=== PATIENT | female | born 1990 | race Caucasian/White ===

== ENCOUNTER 2023-07-01 09:27 | Emergency (ER) | payer BC, SELFPAY ==
[2023-07-01 09:39] VITALS: BP 113/76; PULSE 71; RESP 16; TEMP 36.8; O2SAT 100
--- NOTE | 2023-07-01 09:57 | ED.GENADULT ---
HPI - General Adult General Chief complaint: Unspecified Stated complaint: work note Time Seen by Provider: 07/01/23 09:50 Mode of arrival: ambulatory Limitations: no limitations History of Present Illness HPI narrative: 33-year-old female presents concern for migraine headache. Reports she woke up with a migraine headache this morning and had to call into work. She reports she took Tylenol, Zofran, sumatriptan and went back to sleep, she woke up and her migraine was gone. Reports that she needs a work note. Related Data Home Medications Medication Instructions Recorded Confirmed lithium carbonate 450 mg 450 mg PO DAILY 07/01/23 07/01/23 tablet,extended release ondansetron HCl 4 mg tablet 4 mg PO PRN PRN Nausea And Vomiting 07/01/23 07/01/23 Allergies Allergy/AdvReac Type Severity Reaction Status Date / Time No Known Allergies Allergy Verified 07/01/23 09:44 Review of Systems Review of Systems: CONSTITUTIONAL: Denies malaise, chills, sweats, or fever. EYES: Denies visual changes, redness, or discharge. CARDIOVASCULAR: Denies chest pain, palpitations, or edema. RESPIRATORY: Denies cough or dyspnea. GASTROINTESTINAL: Reports nausea NEUROLOGIC: Denies numbness, weakness. Reports history of headache. PSYCHIATRIC: Denies anxiety or depression. All systems reviewed & are unremarkable except as noted in HPI and below PMFSH Comments At time of signature, agree with nursing past medical, surgical, social and family history. There is no relevant family history pertinent to the presenting complaint Exam Narrative: GENERAL: Well-appearing, well-nourished, and in no acute distress. HEAD: Normocephalic, atraumatic. EYES: PERRLA, sclera clear, and EOMI. No nystagmus. ENT: Nares clear, turbinates pink, no rhinorrhea or epistaxis. Mucous membranes moist. TM pearly fontenot with sharp light reflex bilaterally; no tragal tenderness. Oropharynx without erythema or lesions. Tonsils not enlarged and without exudate. NECK: Supple. No lymphadenopathy CHEST: No respiratory distress. Speaks in full sentences. HEART: Regular rate and rhythm. No murmur heard. Normal peripheral pulses. SKIN: Warm, dry, no visible rash. NEURO: Alert and oriented x3. No focal deficits. Cranial nerves II through XII grossly intact PSYCH: Normal mood and affect Course Course Emergency Course: Patient is aware of diagnosis, understands and agrees to treatment plan. Anticipatory guidance given. Patient agrees to follow-up as directed and is aware of reasons to seek care at the emergency department. Portions of this record may have been created with voice recognition software Level of Care: Express Care Visit Vital Signs Vital signs: Vital Signs Temperature 98.3 F 07/01/23 09:39 Pulse Rate 71 07/01/23 09:39 Respiratory Rate 16 07/01/23 09:39 Blood Pressure 113/76 07/01/23 09:39 Pulse Oximetry 100 07/01/23 09:39 Oxygen Delivery Room Air 07/01/23 09:39 Temperature 98.3 F 07/01/23 09:39 Pulse Rate 71 07/01/23 09:39 Respiratory Rate 16 07/01/23 09:39 Blood Pressure 113/76 07/01/23 09:39 Pulse Oximetry 100 07/01/23 09:39 Oxygen Delivery Room Air 07/01/23 09:39 Reviewed. Medical Decision Making MDM Narrative Medical decision making narrative: The patient was evaluated by myself in the emergency department. History is obtained from patient who is an independent historian and physical exam was performed.? Available medical records were reviewed at this time. ? Exam findings and imaging show no acute concerns or changes; patient is non-toxic appearing and is in no distress. Patient is appropriate for outpatient treatment and follow-up. ? I have evaluated and discussed social determinants of health with the patient that could potentially impact subsequent diagnosis and treatment plans. ? Differential diagnosis and treatment plan were discussed with the patient. Patient agrees with discussion and after sh
== END 2023-07-01 10:04 | disposition home or self-care (01) ==
PROVIDERS: Emergency Provider Nurse Practitioner
DX: O99.891 Other specified diseases and conditions complicating pregnancy (principal); Z3A.01 Less than 8 weeks gestation of pregnancy; R51.9 Headache, unspecified; O99.341 Other mental disorders complicating pregnancy, first trimester; F31.9 Bipolar disorder, unspecified
CPT/HCPCS: 99203; G0463

== ENCOUNTER 2023-07-30 10:50 | Emergency (ER) | payer BC, SELFPAY ==
[2023-07-30 11:00] VITALS: BP 112/79; PULSE 78; RESP 12; TEMP 36.9; O2SAT 100
--- NOTE | 2023-07-30 11:14 | ED.EYEPROB ---
HPI - Eye Problem General Chief complaint: Eye Problems Stated complaint: bump on left eye Time Seen by Provider: 07/30/23 11:05 Source: patient Mode of arrival: ambulatory Limitations: no limitations History of Present Illness HPI Narrative: Josi is a 33-year-old female patient presenting to the clinic today with complaints of a bump to her left upper eyelid. She reports the bump is red and painful. She does get styes frequently. States she has tried warm compresses over the last 3 days without relief. Related Data Home Medications Medication Instructions Recorded Confirmed lithium carbonate 450 mg 450 mg PO DAILY 07/01/23 07/30/23 tablet,extended release ondansetron HCl 4 mg tablet 4 mg PO PRN PRN Nausea And Vomiting 07/01/23 07/30/23 hydroxyzine pamoate 50 mg capsule 50 mg PO DAILY 07/30/23 07/30/23 quetiapine 100 mg tablet 100 mg PO DAILY 07/30/23 07/30/23 sumatriptan succinate 100 mg tablet 100 mg PO DAILY 07/30/23 07/30/23 Allergies Allergy/AdvReac Type Severity Reaction Status Date / Time No Known Allergies Allergy Verified 07/30/23 10:56 Review of Systems Review of Systems: Pertinent positives per HPI. Patient denies any fever, chills, rash, headache, visual changes, dizziness, cough, runny nose, sore throat, shortness of breath, chest pain, palpitations, nausea, vomiting, diarrhea, constipation, abdominal pain, or any urinary issues. PMFSH Comments At the time of my signature, I reviewed and agree with the nursing past medical, surgical, social, and family history. There is no relevant family history pertinent to the patient complaint. Exam Narrative: General: Well-developed, well nourished, in no apparent distress Head: Normocephalic, atraumatic Eyes: Pupils equally round and reactive to light bilaterally, EOM intact, sclera and conjunctive clear, no discharge, right lids normal, left upper lid swollen and red and tender to palpation-non fluctuant Ears: TMs intact and clear, ear canals clear, no drainage, grossly hearing normal. Nose: Nares patent, no discharge, no inflammation, no sinus tenderness. Mouth: Oropharynx without lesions or masses, good dentition, MMM. Neck: Supple, trachea midline, no enlargement of anterior or posterior cervical nodes, no thyroid masses or goiter palpable. Cardio: Regular rate and rhythm, s1 and s2 normal, no murmur appreciated. Resp: Clear to auscultation bilaterally anteriorly and posteriorly, no rhonchi, rales, wheezing or rubs Course Course Emergency Course: Portions of this record may have been created with voice recognition software. Level of Care: Express Care Visit Vital Signs Vital signs: Vital Signs Temperature 36.9 C 07/30/23 11:00 Pulse Rate 78 07/30/23 11:00 Respiratory Rate 12 07/30/23 11:00 Blood Pressure 112/79 07/30/23 11:00 Pulse Oximetry 100 07/30/23 11:00 Temperature 36.9 C 07/30/23 11:00 Pulse Rate 78 07/30/23 11:00 Respiratory Rate 12 07/30/23 11:00 Blood Pressure 112/79 07/30/23 11:00 Pulse Oximetry 100 07/30/23 11:00 Vital signs reviewed MDM - Eye Problem MDM Narrative Medical decision making narrative: At the time of visit patient is resting comfortably on the exam table. Patient appears to be nontoxic. Plan: I suspect patient has likely a stye to the upper eyelid. Will place on polymyxin eyedrops and have her continue warm compresses. Supportive measures were discussed with the patient and they voiced understanding discharge instructions and agrees to treatment plan. Return precautions reviewed Differential Diagnosis Differential diagnosis: Likely other (Stye, abscess, blepharitis, chalzion) Discharge Plan Discharge Clinical Impression: External hordeolum Patient Disposition: Home, Self-Care Condition: Stable Instructions: Antibiotic Derek, Elmer (ED) Additional Instructions: Continue to apply warm compresses to the eye to help alleviate pain and kari
== END 2023-07-30 11:24 | disposition home or self-care (01) ==
PROVIDERS: Emergency Provider Nurse Practitioner Family
DX: H00.014 Hordeolum externum left upper eyelid (principal); F31.9 Bipolar disorder, unspecified
CPT/HCPCS: 99213; G0463

== ENCOUNTER 2023-08-28 17:41 | Emergency (ER) | payer BC, SELFPAY ==
[2023-08-28 17:43] VITALS: BP 123/87; PULSE 71; RESP 16; TEMP 36.6; O2SAT 100
--- NOTE | 2023-08-28 18:33 | PC.NURSE ---
When called to take back to exam room, patient reporting she feels better and no longer wants to be seen. Patient ambulatory out of department with steady gait and in no acute distress.
== END 2023-08-28 18:40 | disposition left against medical advice (07) ==
LOC: ANHED 18:36
DX: G43.909 Migraine, unspecified, not intractable, without status migrainosus (principal)
CPT/HCPCS: 99199

== ENCOUNTER 2024-01-11 11:12 | Emergency (ER) | payer BC, SELFPAY ==
[2024-01-11 11:25] VITALS: BP 133/93; PULSE 91; RESP 20; TEMP 36.6; O2SAT 100
[2024-01-11 11:52] LABS: EDCOVIDSCREEN Negative (Negative); EDINFLUASCREEN Positive (Negative); EDINFLUBSCREEN Negative (Negative); EDSTREPNEGPOS1 Negative (Negative)
--- NOTE | 2024-01-11 11:58 | ED.URI ---
HPI - URI/Sore Throat General Chief Complaint: Upper Respiratory Infection Stated Complaint: /Ears/Sore Throat Time Seen by Provider: 01/11/24 11:48 Source: patient and RN notes reviewed Mode of arrival: ambulatory Limitations: no limitations History of Present Illness HPI Narrative: Patient presents today complaining of headache, productive cough, left ear pain, sore throat, nasal congestion. Symptoms began yesterday. Denies fever or shortness of breath. She is currently 34 weeks . She has been taking Tylenol with some mild relief. She has not received a flu vaccine this season. Related Data Home Medications Medication Instructions Recorded Confirmed ondansetron HCl 4 mg tablet 4 mg PO PRN PRN Nausea And Vomiting 07/01/23 01/11/24 quetiapine 100 mg tablet 100 mg PO DAILY 07/30/23 01/11/24 sumatriptan succinate 100 mg tablet 100 mg PO DAILY 07/30/23 01/11/24 Allergies Allergy/AdvReac Type Severity Reaction Status Date / Time No Known Allergies Allergy Verified 01/11/24 11:52 Review of Systems Review of Systems: CONSTITUTIONAL: Denies body aches, fever, chills, or sweats. EYES: Denies visual changes, redness, or discharge. ENT: Denies rhinorrhea. + congestion, sore throat, left ear pain CARDIOVASCULAR: Denies chest pain, palpitations, or edema. RESPIRATORY: Denies dyspnea.+ cough GASTROINTESTINAL: Denies abdominal pain, nausea, vomiting, or diarrhea. GENITOURINARY: Denies dysuria or hematuria. SKIN: Denies rash, itching, or wounds. MUSCULOSKELETAL: Denies back pain, joint pain, or myalgia. NEUROLOGIC: Denies numbness, tingling, or weakness.+ headache PSYCH: Denies depression or anxiety. PMFSH Comments At time of signature, I have reviewed and agree with nursing past medical, surgical, social and family history unless otherwise noted. Please see nursing chart for further information. There is no relevant family history pertinent to the presenting complaint Exam Narrative: GENERAL: Mildly ill-appearing, well-nourished, and in no acute distress. HEAD: Normocephalic, atraumatic. EYES: EOMI. No redness or drainage. Conjunctivae normal. ENT: Mucous membranes pink and moist. Nares congested. No rhinorrhea. TMs normal bilaterally. Throat normal. Uvula midline. NECK: Normal AROM. Supple. No lymphadenopathy. CHEST: No respiratory distress. Clear to auscultation. HEART: Regular rate and rhythm. No murmur appreciated. EXTREMITIES: Normal range of motion. No edema. SKIN: Warm, dry, no rash. Capillary refill normal. Normal skin turgor. NEURO: No focal deficits. Alert and oriented x3. Gait steady. PSYCH: Normal affect. No signs of depression or anxiety. Course Course Level of Care: Express Care Visit Vital Signs Vital signs: Vital Signs Temperature 98 F 01/11/24 11:25 Pulse Rate 91 01/11/24 11:25 Respiratory Rate 20 01/11/24 11:25 Blood Pressure 133/93 H 01/11/24 11:25 Pulse Oximetry 100 01/11/24 11:25 Oxygen Delivery Room Air 01/11/24 11:25 Temperature 98 F 01/11/24 11:25 Pulse Rate 91 01/11/24 11:25 Respiratory Rate 20 01/11/24 11:25 Blood Pressure 133/93 H 01/11/24 11:25 Pulse Oximetry 100 01/11/24 11:25 Oxygen Delivery Room Air 01/11/24 11:25 Reviewed MDM - URI/Sore Throat MDM Narrative Medical decision making narrative: COVID and strep throat negative. Influenza a positive. Prescription for Tamiflu sent to pharmacy. Anticipatory guidance given. Differential Diagnosis Differential diagnosis: Likely upper respiratory infection, otitis media, viral infection, influenza, pharyngitis and other (COVID, strep throat) Lab Data Attestation: I reviewed the patient's lab results. Labs: Lab Results 01/11/24 Range/Units 11:50 POC Influenza A Ag Positive (Negative) POC Influenza B Ag Negative (Negative) POC SARS CoV-2 Ag Negative (Negative) POC Grp A Strep Screen Negative (Negative) Critical Care Time Critical Care Time Critical Care Time: No Discharge Plan Discharge Clinical Impression: Influenza A Patient Disposition: Home, Self-Care Condition: Stable Instructions: Influenza (DC) Additional Instructions: You have tested positive for influenza a today. Your COVID and strep throat tests are negative. Rest and stay hydrated. Take the Tamiflu as prescribed. Follow-up with your PCP or OBGYN if symptoms are not improving. Go to the ER if symptoms worsen. Your blood pressure was elevated above 120/80 today at Urgent Care. This puts you above the threshold for follow up. Please schedule a followup visit with your personal physician as soon as possible, for further evaluation and treatment. Even blood pressure exceeding 120/80 may indicate pre-hypertension. Prescriptions: New oseltamivir [Tamiflu] 75 mg capsule 75 mg PO Q12H 5 Days Qty: 10 0RF No Action ondansetron HCl 4 mg tablet 4 mg PO PRN PRN (Reason: Nausea And Vomiting) sumatriptan succinate 100 mg tablet 100 mg PO DAILY quetiapine 100 mg tablet 100 mg PO DAILY Follow-up/Referrals: Ayesha,LISS Figueroa [Primary Care Provider] - Stand Alone Forms: Work/School Release IP Time of Disposition: 12:01
== END 2024-01-11 12:10 | disposition home or self-care (01) ==
PROVIDERS: Emergency Provider Nurse Practitioner; PCP Physician Assistant
DX: O99.513 Diseases of the respiratory system complicating pregnancy, third trimester (principal); Z3A.34 34 weeks gestation of pregnancy; J10.1 Influenza due to other identified influenza virus with other respiratory manifestations; Z20.822 Contact with and (suspected) exposure to COVID-19
CPT/HCPCS: 87081; 87426; 87804; 87880; 99213; G0463

== ENCOUNTER 2024-06-13 11:21 | Emergency (ER) | payer BC, SELFPAY ==
[2024-06-13 11:25] VITALS: BP 130/80; PULSE 74; RESP 20; TEMP 36.4; O2SAT 99
--- NOTE | 2024-06-13 11:41 | ED_ITS ---
HPI - Female Genitourinary General Chief complaint: Urogenital-Female Stated complaint: urinary issue Time Seen by Provider: 06/13/24 11:45 Source: patient, RN notes reviewed and old records reviewed Mode of arrival: ambulatory Limitations: no limitations History of Present Illness HPI Narrative: 34 year old female presents to [facility] care with complaints of having suprapubic pain and bladder pain with pressure and pain with urination which started this morning around 0300. Patient reports that she has been drinking plenty of fluids denies any urgency or frequency, reports no flank pain or any noted blood in urine, states that she is having some spotting at this time does have IUD. Patient reports no concern for STD exposure. Patient reports no fevers, chills, or sweats MD elicited complaint: UTI Onset (ago): hour(s) (3 am today) Location of symptoms: suprapubic and urethra Severity: mild Quality of pain: other (pressure and pain with urination no burning no urgency or frequency) Consistency: intermittent Vaginal discharge: none Vaginal bleeding: other (spotting) Urinary symptoms: Dysuria (suprapubic pressure) Treatment prior to arrival: other (states had migraine this morning took sumatriptan, Zofran and Excedrin) Related Data Home Medications ?Medication ?Instructions ?Recorded ?Confirmed ?Last Taken ?Type ondansetron HCl 4 mg tablet 4 mg PO PRN PRN Nausea And Vomiting 07/01/23 01/11/24 Unknown History quetiapine 100 mg tablet 100 mg PO DAILY 07/30/23 01/11/24 Unknown History bupropion HCl 150 mg tablet,12 hr mg PO 06/13/24 Unknown History sustained-release quetiapine 50 mg tablet mg 06/13/24 Unknown History sertraline 50 mg tablet mg 06/13/24 Unknown History sumatriptan succinate 100 mg tablet mg PO 06/13/24 Unknown History Allergies Allergy/AdvReac Type Severity Reaction Status Date / Time No Known Allergies Allergy Verified 06/13/24 11:23 Review of Systems Review of Systems: CONSTITUTIONAL: Denies fever, chills, or sweats. CARDIOVASCULAR: Denies chest pain, palpitations, or edema. RESPIRATORY: Denies cough or dyspnea. GASTROINTESTINAL:Reports suprapubic abdominal pain, stated nausea with headache this morning,no vomiting, or diarrhea. GENITOURINARY: Reports dysuria,no frequency, urgency. Denies flank pain or hematuria. reports pain with urination SKIN: Denies rash or itching. MUSCULOSKELETAL: Denies back pain or myalgia. Denies CVA tenderness NEUROLOGIC: Reports migraine headache this morning treated with sumatriptan, Excedrin,and Zofran All systems reviewed & are unremarkable except as noted in HPI and below PMFSH Past Medical History Medical History (Updated 06/15/24 @ 09:28 by Yaquelin Ferreira NP) H/O hordeolum Migraine Bipolar disorder ADHD (attention deficit hyperactivity disorder) Anxiety Social History Social History Smoking status: Current every day smoker Tobacco type: cigarettes Alcohol use details: no alcohol use Substance use type: does not use Living arrangements: with family Gender identity (if verbalized by the patient): Female Comments At time of signature, agree with nursing past medical, surgical, social and family history. There is no relevant family history pertinent to the presenting complaint Exam Narrative: GENERAL: Well-appearing, well-nourished, and in no acute distress. HEAD: Normocephalic, atraumatic. NECK: Supple.no lymphadenopathy CHEST: Clear to auscultation. No respiratory distress.SAO2 99% on room air HEART: Regular rate and rhythm. No murmur heard. Normal peripheral pulses. ABDOMEN: Soft, nontender to palpation, reports some suprapubic pressure and pain with urination, nondistended, No McBurney point tenderness,normal active bowel sounds. No CVA tenderness EXTREMITIES: Normal range of motion. No edema. SKIN: Warm, dry, no rash. NEURO: No focal deficits. Alert and oriented x3. Course Course Emergency Course: Patient is aware of diagnosis, understands and agrees to treatment plan.? Anticipatory guidance given.? Patient agrees to follow-up as directed and is aware of reasons to seek care at the emergency department. Portions of this record may have been created with voice recognition software Level of Care: Express Care Visit Vital Signs Vital signs: Vital Signs Temperature 36.4 C L 06/13/24 11:25 Pulse Rate 74 06/13/24 11:25 Respiratory Rate 20 06/13/24 11:25 Blood Pressure 130/80 06/13/24 11:25 Pulse Oximetry 99 06/13/24 11:25 Oxygen Delivery Room Air 06/13/24 11:25 Temperature 36.4 C L 06/13/24 11:25 Pulse Rate 74 06/13/24 11:25 Respiratory Rate 20 06/13/24 11:25 Blood Pressure 130/80 06/13/24 11:25 Pulse Oximetry 99 06/13/24 11:25 Oxygen Delivery Room Air 06/13/24 11:25 MDM - Female Genitourinary MDM Narrative Medical decision making narrative: Exam findings and UA show no acute concerns or changes; patient is non-toxic appearing and is in no distress.? Patient is appropriate for outpatient treatment and follow-up. Differential Diagnosis Differential diagnosis: Likely urinary tract infection, cystitis and other (pain with urination, suprapubic pressure) Medical Records Attestation: I reviewed the patient's medical records. Lab Data Attestation: I reviewed the patient's lab results. Lab results narrative: urine dip: Glucose negative, bilirubin negative ketone negative specific gravity less than or equal to 1.005, blood negative, pH 6.0, protein negative, urobilinogen 0.2, nitrate negative, leukocyte negative Labs: Lab Results 06/13/24 Range/Units 11:42 POC Urine Color Yellow POC Urine Clarity Clear POC Urine pH 6.0 POC Ur Specif [place] 1.000 POC Urine Protein Negative (Negative) POC Ur Glucose (UA) Negative (Negative) POC Urine Ketones Negative (Negative) POC Urine Blood Negative (Negative) POC Urine Nitrite Negative (Negative) POC Urine Bilirubin Negative (Negative) POC Urine Urobilinogen 0.2 POC U Leukocyte Esteras Negative (Negative) reviewed Critical Care Time Critical Care Time Critical Care Time: No Discharge Plan Discharge Clinical Impression: Symptoms of urinary tract infection Patient Disposition: Home Condition: Stable Instructions: Antibiotic Form, Urinary Tract Infection in Women (ED), Dysuria (ED) Additional Instructions: Increase fluids especially cranberry juice and water Avoid caffeine and carbonated beverages Antibiotic as directed Tylenol/ibuprofen for pain or fever Follow-up with her primary care provider if further problems or concerns Recheck if you have fever over 101, nausea and vomiting. If increase pain, change in condition, fevers or any concerns go to the emergency room for further evaluation If your symptoms persist, change or worsen significantly before you can contact your personal physician then please, without delay, go to the emergency depar tment for further evaluation. Follow-up with PCP in 7-10 days or sooner if needed Follow up with PCP soon in regards to your blood pressure which is elevated above threshold for referral. Blood pressure above 120/80 may indicate pre- hypertension. 130/80 Patient Language: Bangladeshi Prescriptions: New nitrofurantoin monohyd/m-cryst [Macrobid] 100 mg capsule 100 mg PO Q12H 5 Days Qty: 10 0RF Rx Instructions: must administer with a meal/food No Action ondansetron HCl 4 mg tablet 4 mg PO PRN PRN (Reason: Nausea And Vomiting) quetiapine 100 mg tablet 100 mg PO DAILY bupropion HCl 150 mg tablet sustained-release 12 hr PO sertraline 50 mg tablet quetiapine 50 mg tablet sumatriptan succinate 100 mg tablet PO Follow-up/Referrals: Ayesha,LISS Figueroa [Primary Care Provider] - Time of Disposition: 12:09 Quality Bishop Coma Scale Eyes: Open Verbal: Oriented and Alert Motor: Follows Commands Bishop Coma Total Score: 15
[2024-06-13 11:44] LABS: EDUAAPPEAR Clear; EDUABILI Negative (Negative); EDUABLOOD Negative (Negative); EDUACOLOR1 Yellow; EDUAGLUCOSE Negative (Negative); EDUAKETONE Negative (Negative); EDUALEUKO Negative (Negative); EDUANITRATE Negative (Negative); EDUAPROTEIN Negative (Negative); EDUAUROBILI 0.2
== END 2024-06-13 12:15 | disposition home or self-care (01) ==
PROVIDERS: Emergency Provider Registered Nurse; PCP Physician Assistant
DX: R10.30 Lower abdominal pain, unspecified (principal); R30.0 Dysuria; F17.210 Nicotine dependence, cigarettes, uncomplicated; F31.9 Bipolar disorder, unspecified
CPT/HCPCS: 81003; 87086; 99213; G0463